=== PATIENT | male | born 1940 | race Caucasian/White ===

== ENCOUNTER 2022-01-14 14:55 | Emergency (ER) | payer MEDICARE, OTHER ==
[2022-01-14 15:13] VITALS: O2SAT 97
[2022-01-14] MEDS ORDERED: Adacel Vial IM ONE ×2 (15:51→16:10)
[2022-01-14] MEDS ORDERED: PERCOCET TABLET 5/325MG PO ONE (15:52)
--- NOTE | 2022-01-14 15:57 | ERPHSYRPT ---
- History of Present Illness Time Seen by Provider: 01/14/22 15:37 Source: patient Exam Limitations: no limitations Patient Subjective Stated Complaint: pt reports he was changing his mower blades wearing leather gloves when the blade struck his left fifth finger causing a laceration. pt denies any other injury. Triage Nursing Assessment: pt is aox3, pupils perrl, afebrile, resps easy and non labored, radial pulses strong and equal, cap refill < 3 seconds, pt sensation and ROM intact, pt skin pink warm dry. pt with approx 1cm laceration to the lateral left fifth finger. skin is well approximated. Physician History: 81 years old right-handed dominant male presented to the ER with chief complaint of laceration left fifth digit distal phalanx while he was changing his lawnmower blades and his wrench slipped and hit on the finger with his gloves on. There was bleeding initially but improved with applying pressure. Has multiple superficial cuts on the medial aspect of nail and finger pulp. Moderate intensity sharp pain with minimal movement/palpation. No injury anywhere else. Timing/Duration: today, sudden Quality: painful Severity: mild, moderate Location: hands Hx Tetanus, Diphtheria Vaccination/Date Given: No Hx Influenza Vaccination/Date Given: No Hx Pneumococcal Vaccination/Date Given: No Immunizations Up to Date: Yes Travel Risk - International Travel Have you traveled outside of the country in past 3 weeks: No - Coronavirus Screening Are you exhibiting any of the following symptoms?: No - Vaccine Status Have you recieved a Covid-19 vaccination: No - Review of Systems Constitutional: No Symptoms Ears, Nose, & Throat: No Symptoms Respiratory: No Symptoms Cardiac: No Symptoms Abdominal/Gastrointestinal: No Symptoms Musculoskeletal: Injury, Joint Redness, Joint Pain Skin: Skin Lesions Neurological: No Symptoms Endocrine: No Symptoms Hematologic/Lymphatic: No Symptoms - Past Medical History Neurological History: No Pertinent History Cardiac History: No Pertinent History Respiratory History: No Pertinent History Endocrine Medical History: No Pertinent History Musculoskeletal History: Arthritis - Past Surgical History Past Surgical History: Yes Gastrointestinal: Hernia Repair Musculoskeletal: Joint Replacement - Social History Smoking Status: Never smoker Drug Use: none Patient Lives Alone: No - Nursing Vital Signs Nursing Vital Signs: Initial Vital Signs Temperature 97.7 F 01/14/22 15:01 Pulse Rate 70 01/14/22 15:01 Respiratory Rate 18 01/14/22 15:01 Blood Pressure 119/55 01/14/22 15:01 O2 Sat by Pulse Oximetry 97 01/14/22 15:01 Pain Scale Pain Intensity 4 - Physical Exam General Appearance: no apparent distress, alert Ears, Nose, Throat Exam: normal ENT inspection Neck Exam: normal inspection, full range of motion Respiratory Exam: normal breath sounds, lungs clear Cardiovascular Exam: regular rate/rhythm, normal heart sounds Extremity Exam: inflammation, limited range of motion (DIP left 5th digit), swelling (multiple superficial lacerations 1cm each, minimal oozing), tenderness Neurologic Exam: alert, oriented x 3, cooperative, advertiser II-XII nml as tested Skin Exam: normal color SpO2 Interpretation: normal SpO2: 97 O2 Delivery: Room Air Procedures - Laceration/Wound Repair Left Distal Finger Time of Procedure: 15:58 Wound Location: Left Wound Length (cm): 3 Wound's Depth, Shape: superficial Wound Explored: clean Irrigated: Yes Hibiclens Prep: Yes Wound Repaired With: Steri-strips, Dermabond Splint Applied?: Yes Ordered Tests: Active Orders 24 hr Category Date Time Status Wound Care STAT Care 01/14/22 16:28 Completed FINGER(S) Stat Exams 01/14/22 Completed Medication Summary Discontinued Medications Generic Name Dose Route Start Last Admin Trade Name Ayala PRN Reason Stop Dose Admin Diphtheria/Tetanus/Acell Pertussis 0.5 ml 01/14/22 15:51 01/14/22 16:10 Tdap --Diph,Pertuss(Acell),Tet Vac/Pf 0.5 Ml Vial IM 01/14/22 15:52 0.5 ml .ONCE ONE Administration Diphtheria/Tetanus/Acell Pertussis Confirm 01/14/22 16:10 Tdap --Diph,Pertuss(Acell),Tet Vac/Pf 0.5 Ml Vial Administered 01/14/22 16:11 Dose 0.5 ml IM .STK-MED ONE Oxycodone/Acetaminophen 1 tab 01/14/22 15:52 01/14/22 16:04 Oxycodone Hcl/Apap 5 Mg/325 Mg Tablet PO 01/14/22 15:53 1 tab STAT ONE Administration Oxycodone/Acetaminophen Confirm 01/14/22 16:03 Oxycodone Hcl/Apap 5 Mg/325 Mg Tablet Administered 01/14/22 16:04 Dose 1 tab .ROUTE .STK-MED ONE - Progress Progress: improved, pain not gone completely, re-examined Progress Note: 01/14/22 16:28 Given symptomatic treatment for pain. No obvious fracture on x-rays reviewed by me, official report is pending. Steri-Strips/glue application is done with repair of lacerations which are superficial. Outpatient follow-up and Tylenol as needed. Counseled pt/family regarding: diagnosis, need for follow-up, rad results - Departure Departure Disposition: Home Clinical Impression: Finger laceration Condition: Stable Critical Care Time: No Referrals: JON RODRIGUEZ [Primary Care Provider] - Follow up/PCP as directed (2 days for re evaluation) Instructions: Laceration Repair With Glue (DC) Additional Instructions: Finger laceration take Tylenol as needed for pain. Intermittent ice application. Follow-up with primary care for reevaluation. Do not soak in water for next 48 hours. Return to ER for increasing pain swelling or if have any discharge/fever chills etc.
[2022-01-14] MEDS ORDERED: PERCOCET TABLET 5/325MG ONE (16:03)
[2022-01-14 16:36] VITALS: BP 112/74; PULSE 64
--- NOTE | 2022-01-14 17:49 | XRAY ---
Indication: Laceration. Comparison: None 3 view left 5th finger demonstrates tiny tuft soft tissue swelling/laceration and osteopenia. No other bony, articular, or soft tissue abnormalities.
== END 2022-01-14 16:43 | disposition home or self-care (01) ==
LOC: ED 14:55
DX: S61.217A Laceration without foreign body of left little finger without damage to nail, initial encounter (principal); W20.8XXA Other cause of strike by thrown, projected or falling object, initial encounter; Y93.H9 Activity, other involving exterior property and land maintenance, building and construction; Y92.007 Garden or yard of unspecified non-institutional (private) residence as the place of occurrence of the external cause
CPT/HCPCS: 12002; 73140; 90471; 90715; 99284; A9270-GY

== ENCOUNTER 2025-08-09 13:28 | Emergency (ER) | payer MEDICARE ==
[2025-08-09 13:54] VITALS: TEMP 98.1
--- NOTE | 2025-08-09 13:54 | ERPHSYRPT ---
- History of Present Illness Time Seen by Provider: 08/09/25 13:32 Source: patient Exam Limitations: no limitations Physician History: 84-year-old male presents to the emergency room patient reports he fell on Sunday was seen in the urgent care and he reports he was diagnosed with rib fractures reports he has been doing with the pain since that no minimal improvement he reports has been having a lot of muscle spasms when he takes deep inspiration patient is now in ED for further eval patient denies any new trauma IMPRESSION: 1. Age-indeterminate fractures at left 7th, 8th, 9th, 10th, and 11th ribs. Clinical correlation with point tenderness is suggested 2. A few basal pulmonary atelectatic bands. 3. Diffuse decreased bone density. 4. Correlation with clinical findings and further imaging if necessary. Timing/Duration: yesterday Severity: mild Associated Symptoms: other (Muscle spasms and ribs) Allergies/Adverse Reactions: No Known Drug Allergies Allergy (Unverified 08/09/25 13:56) Home Medications: Amlodipine Besylate 2.5 mg PO DAILY 08/09/25 [History] Apixaban [Eliquis] 5 mg PO BID 08/09/25 [History] Atorvastatin Calcium 20 mg PO DAILY 08/09/25 [History] Famotidine 20 mg PO DAILY 08/09/25 [History] Finasteride 5 mg [Proscar 5 MG] 5 mg PO DAILY 08/09/25 [History] Fluticasone/Umeclidin/Vilanter [Trelegy Ellipta 100-62.5-25] See Rx Instructions .ROUTE .COMPLEX 08/09/25 [History] Metoprolol Tartrate 25 mg PO BID 08/09/25 [History] Omeprazole 40 mg PO DAILY 08/09/25 [History] Rivastigmine [Exelon] 9.5 mg TD DAILY 08/09/25 [History] Tamsulosin HCl 0.4 mg PO DAILY 08/09/25 [History] Hx Tetanus, Diphtheria Vaccination/Date Given: No Hx Influenza Vaccination/Date Given: No Hx Pneumococcal Vaccination/Date Given: No - Review of Systems Constitutional: No Fever, No Chills Eyes: No Symptoms Ears, Nose, & Throat: No Symptoms Respiratory: No Cough, No Dyspnea Cardiac: Other (Rib pain spasms), No Chest Pain, No Edema, No Syncope Abdominal/Gastrointestinal: No Abdominal Pain, No Nausea, No Vomiting, No Diarrhea Genitourinary Symptoms: No Dysuria Musculoskeletal: No Back Pain, No Neck Pain Skin: No Rash Neurological: No Dizziness, No Focal Weakness, No Sensory Changes Psychological: No Symptoms Endocrine: No Symptoms All Other Systems: Reviewed and Negative - Past Medical History Neurological History: Dementia Cardiac History: Arrhythmia Other Medical History: GERD, MILD COGNITIVE IMPAIRMENT, BENIGN PROSTATIC HYPERPLASIA, ANTWON, PERSISTENT SINUS BRADYCARDIA, AMNESIA, HEART VALVE DISORDER, VENTRICULAR BIGEMINY, PACEMAKER, A-FIB, PVD, OBSTRUCTIVE PULMONARY DISEASE. 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 SX: HERNIA REPAIR, L TKR - Past Surgical History Past Surgical History: Yes Gastrointestinal: Hernia Repair Musculoskeletal: Joint Replacement - Social History Smoking Status: Never smoker Drug Use: none Patient Lives Alone: No - Nursing Vital Signs Nursing Vital Signs: Initial Vital Signs Temperature 98.1 F 08/09/25 13:30 Pulse Rate 65 08/09/25 13:30 Respiratory Rate 16 08/09/25 13:30 Blood Pressure 122/96 08/09/25 13:30 O2 Sat by Pulse Oximetry 98 08/09/25 13:30 Pain Scale Pain Intensity 8 - Physical Exam General Appearance: no apparent distress, alert Eye Exam: PERRL/EOMI, eyes nml inspection Ears, Nose, Throat Exam: normal ENT inspection, TMs normal, pharynx normal, moist mucous membranes Neck Exam: normal inspection, non-tender, supple, full range of motion Respiratory Exam: normal breath sounds, lungs clear, No respiratory distress Cardiovascular Exam: regular rate/rhythm, normal heart sounds, normal peripheral pulses, other (Chest wall tender) Gastrointestinal/Abdomen Exam: soft, normal bowel sounds, No tenderness, No mass Back Exam: normal inspection, normal range of motion, No CVA tenderness, No vertebral tenderness Extremity Exam: normal inspection, normal range of motion, pelvis stable Neurologic Exam: alert, oriented x 3, cooperative, normal mood/affect, nml cerebellar function, nml station & gait, sensation nml, No motor deficits Skin Exam: normal color, warm, dry, No rash Lymphatic Exam: No adenopathy Ordered Tests: Active Orders 24 hr Category Date Time Status Incentive Spirometry STAT RT 08/09/25 13:55 Active Medication Summary Discontinued Medications Generic Name Dose Route Start Last Admin Trade Name Freq PRN Reason Stop Dose Admin Cyclobenzaprine HCl 10 mg 08/09/25 13:51 08/09/25 14:03 Cyclobenzaprine Hcl 10 Mg Tablet PO 08/09/25 13:52 10 mg STAT ONE Administration Cyclobenzaprine HCl Confirm 08/09/25 13:58 Cyclobenzaprine Hcl 10 Mg Tablet Administered 08/09/25 13:59 Dose 10 mg .ROUTE .STK-MED ONE Ketorolac Tromethamine 15 mg 08/09/25 13:51 08/09/25 14:04 Ketorolac Tromethamine 30 Mg/Ml Inj IM 08/09/25 13:52 15 mg STAT ONE Administration Ketorolac Tromethamine Confirm 08/09/25 13:58 Ketorolac Tromethamine 30 Mg/Ml Inj Administered 08/09/25 13:59 Dose 30 mg .ROUTE .STK-MED ONE - Progress Progress Note: 08/09/25 13:54 Patient will be given Flexeril and a shot of Toradol 08/09/25 14:45 Patient feels improved after Flexeril patient be discharged home he has an incentive spirometer recommended that he use the recommended lidocaine as needed will be discharged at this time - Departure Departure Disposition: Home Clinical Impression: Muscle spasm Ribs, multiple fractures Qualifiers: Encounter type: initial encounter Fracture type: closed Laterality: left Qualified Code(s): S22.42XA - Multiple fractures of ribs, left side, initial encounter for closed fracture Condition: Stable Critical Care Time: No Referrals: CHASTITY FALLON NP [Primary Care Provider, [facility]] - Follow up/PCP as directed Instructions: Rib Fracture (DC), Bruised Rib, How to use an incentive spirometer Prescriptions: Cyclobenzaprine HCl 10 mg [Cyclobenzaprine 10 MG] 10 mg PO HS #7 tablet
[2025-08-09] MEDS ORDERED: Cyclobenzaprine 10 MG ONE (13:58)
[2025-08-09] MEDS ORDERED: TORAdol 30 mg Injection ONE (13:58)
[2025-08-09] MEDS: Cyclobenzaprine 10 MG PO ONE (14:03)
[2025-08-09] MEDS: TORAdol 30 mg Injection IM ONE (14:04)
[2025-08-09 14:30] VITALS: O2SAT 96
[2025-08-09 16:09] VITALS: BP 192/92; PULSE 67; RESP 18
== END 2025-08-09 15:37 | disposition home or self-care (01) ==
LOC: ED 13:28
DX: S22.42XA Multiple fractures of ribs, left side, initial encounter for closed fracture (principal); W19.XXXA Unspecified fall, initial encounter; Z79.01 Long term (current) use of anticoagulants; Z79.899 Other long term (current) drug therapy

== ENCOUNTER 2025-08-13 13:18 | Emergency (ER) | payer MEDICARE ==
--- NOTE | 2025-08-13 13:26 | ERPHSYRPT ---
- History of Present Illness Time Seen by Provider: 08/13/25 13:26 Source: patient, family Exam Limitations: no limitations Physician History: This is an 84-year-old white male patient who recently fell and fractured left side ribs 7 through 11. He has been home for several days following that fall. The the patient's primary care provider is nurse practitioner Fei. In the last few days patient's /family have stated that his dementia is worsening, he is having worsening left chest wall pain and he has had increased bilateral lower extremity swelling. Patient is currently not voicing any significant symptoms. Patient has a history of prostate issues, gastroesophageal reflux disease, hypertension, dementia, hyperlipidemia, atrial fibrillation, COPD and has a pacemaker in place. Patient is on Eliquis. Timing/Duration: day(s) (3) Associated Symptoms: other (Left-sided rib pain), No nausea, No vomiting, No abdominal pain, No shortness of breath, No chest pain Allergies/Adverse Reactions: No Known Drug Allergies Allergy (Verified 08/13/25 13:28) Home Medications: Amlodipine Besylate 2.5 mg PO DAILY 08/09/25 [History] Apixaban [Eliquis] 5 mg PO BID 08/09/25 [History] Atorvastatin Calcium 20 mg PO DAILY 08/09/25 [History] Famotidine 20 mg PO DAILY 08/09/25 [History] Finasteride 5 mg [Proscar 5 MG] 5 mg PO DAILY 08/09/25 [History] Fluticasone/Umeclidin/Vilanter [Trelegy Ellipta 100-62.5-25] See Rx Instructions .ROUTE .COMPLEX 08/09/25 [History] Metoprolol Tartrate 25 mg PO BID 08/09/25 [History] Omeprazole 40 mg PO DAILY 08/09/25 [History] Rivastigmine [Exelon] 9.5 mg TD DAILY 08/09/25 [History] Tamsulosin HCl 0.4 mg PO DAILY 08/09/25 [History] Hx Tetanus, Diphtheria Vaccination/Date Given: No Hx Influenza Vaccination/Date Given: No Hx Pneumococcal Vaccination/Date Given: No Travel Risk - International Travel Have you traveled outside of the country in past 3 weeks: No - Emerging Infectious Disease Are you exhibiting symptoms associated with any current EIDs: No - Review of Systems Constitutional: No Symptoms Eyes: No Symptoms Ears, Nose, & Throat: No Symptoms Respiratory: No Symptoms, Other (Left-sided rib pain status post rib fractures) Cardiac: No Symptoms Abdominal/Gastrointestinal: No Symptoms Genitourinary Symptoms: No Symptoms Musculoskeletal: No Symptoms Skin: No Symptoms Neurological: No Symptoms Psychological: No Symptoms Endocrine: No Symptoms Hematologic/Lymphatic: No Symptoms Immunological/Allergic: No Symptoms All Other Systems: Reviewed and Negative - Past Medical History Neurological History: Dementia Cardiac History: Arrhythmia Other Medical History: GERD, MILD COGNITIVE IMPAIRMENT, BENIGN PROSTATIC HYPERPLASIA, ANTWON, PERSISTENT SINUS BRADYCARDIA, AMNESIA, HEART VALVE DISORDER, VENTRICULAR BIGEMINY, PACEMAKER, A-FIB, PVD, OBSTRUCTIVE PULMONARY DISEASE. 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 SX: HERNIA REPAIR, L TKR - Past Surgical History Past Surgical History: Yes Gastrointestinal: Hernia Repair Musculoskeletal: Joint Replacement - Social History Smoking Status: Never smoker Drug Use: none Patient Lives Alone: No - Social Determinants of Health Will the patient participate in the screening: Yes Do you worry about a steady place to live?: No In the past 12 months,have you had to go without utilities?: No Transportation Issues: No Has anyone in your support network made you feel unsafe?: No Have you or anyone in your house had to go w/o enough food: No - Nursing Vital Signs Nursing Vital Signs: Initial Vital Signs Pulse Rate 62 08/13/25 13:30 Respiratory Rate 14 08/13/25 13:30 Blood Pressure 166/88 08/13/25 13:30 O2 Sat by Pulse Oximetry 96 08/13/25 13:30 Pain Scale Pain Intensity 2 - Physical Exam General Appearance: no apparent distress, alert Eye Exam: PERRL/EOMI, eyes nml inspection Ears, Nose, Throat Exam: normal ENT inspection, moist mucous membranes Neck Exam: normal inspection, non-tender, supple, full range of motion Respiratory Exam: normal breath sounds, chest tenderness (Left side rib tenderness to palpation), lungs clear, airway intact, No respiratory distress Cardiovascular Exam: regular rate/rhythm, normal heart sounds, normal peripheral pulses Gastrointestinal/Abdomen Exam: soft, normal bowel sounds, No tenderness Rectal Exam: not done Back Exam: normal inspection, normal range of motion, No CVA tenderness, No vertebral tenderness Extremity Exam: normal range of motion, pelvis stable, pedal edema (Bilateral feet and ankle swelling), swelling Neurologic Exam: alert, oriented x 3, cooperative, valve inserter II-XII nml as tested, nml station & gait, sensation nml Skin Exam: normal color, warm Lymphatic Exam: No adenopathy SpO2 Interpretation: normal O2 Delivery: Room Air - Course Nursing assessment & vital signs reviewed: Yes Ordered Tests: Active Orders 24 hr Category Date Time Status EKG-ER Only STAT Care 08/13/25 14:10 Completed IV Insertion STAT Care 08/13/25 14:10 Completed CHEST WITHOUT CONTRAST [CT] Stat Exams 08/13/25 14:13 Completed HEAD WITHOUT CONTRAST [CT] Stat Exams 08/13/25 14:12 Completed VENOUS BILATERAL EXTREMITY [US] Stat Exams 08/13/25 14:14 Completed CBC W DIFF Stat Lab 08/13/25 15:35 Completed CMP Stat Lab 08/13/25 15:35 Completed NT PRO BNPII Stat Lab 08/13/25 15:35 Completed TROPONIN Q4H Lab 08/13/25 15:35 Completed TROPONIN Q4H Lab 08/13/25 18:15 Ordered TROPONIN Q4H Lab 08/13/25 22:15 Ordered UA W/RFX UR CULTURE Stat Lab 08/13/25 14:38 Completed Lab/Rad Data: Laboratory Result Diagrams 08/13/25 15:35 08/13/25 15:35 Laboratory Results 08/13/25 08/13/25 08/13/25 Range/Units 15:35 15:35 15:35 WBC 5.5 (4.23-9.07) x10^3/uL RBC 4.60 L (4.63-6.08) x10^6/uL Hgb 13.5 L (13.7-17.5) g/dL Hct 41.8 (40.1-51.0) % MCV 90.9 (79.0-92.2) fL MCH 29.3 (25.7-32.2) pg MCHC 32.3 (32.3-36.5) g/dL RDW 13.6 (11.6-14.4) % Plt Count 172 (163-337) x10^3/uL MPV 10.4 (9.4-12.4) fL Gran % 77.0 H (34.0-67.9) % Immature Gran % (Auto) 0.4 (0.001-0.429) % Nucleat RBC Rel Count 0.0 (0.00-0.2) % Eos # (Auto) 0.02 L (0.04-0.54) x10^3/uL Immature Gran # (Auto) 0.02 (0.001-0.031) x10^3u/L Absolute Lymphs (auto) 0.76 L (1.32-3.57) x10^3/uL Absolute Monos (auto) 0.44 (0.30-0.82) x10^3/uL Absolute Nucleated RBC 0.00 (0.00-0.012) x10^3u/L Lymphocytes % 13.8 L (21.8-53.1) % Monocytes % 8.0 (5.3-12.2) % Eosinophils % 0.4 L (0.8-7.0) % Basophils % 0.4 (0.2-1.2) % Absolute Granulocytes 4.23 (1.78-5.38) x10^3/uL Basophils # 0.02 (0.01-0.08) x10^3/uL Sodium 138 (135-145) mmol/L Potassium 4.0 (3.5-5.1) mmol/L Chloride 103 (98-107) mmol/L Carbon Dioxide 27 (22-30) mmol/L Anion Gap 12.5 (5-15) MEQ/L BUN 20 (9-20) mg/dL Creatinine 0.97 (0.66-1.25) mg/dL Estimated GFR 77.5 ML/MIN Glucose 100 (74-106) mg/dL Calcium 8.8 (8.4-10.2) mg/dL Total Bilirubin 1.50 H (0.2-1.3) mg/dL AST 50 (17-59) U/L ALT 47 (0-50) U/L Alkaline Phosphatase 60 (38-126) U/L Troponin I < 0.012 (0.000-0.033) ng/mL NT-Pro-B Natriuret Pep 331 (<300) pg/mL Serum Total Protein 6.4 (6.3-8.2) g/dL Albumin 3.9 (3.5-5.0) g/dL Urine Color (Yellow) Urine Appearance (Clear) Urine pH (4.6-8.0) Ur Specific Driscoll (1.005-1.030) Urine Protein (Negative) Urine Glucose (UA) (Negative) mg/dL Urine Ketones (Negative) Urine Blood (Negative) Urine Nitrite (Negative) Urine Bilirubin (Negative) Urine Urobilinogen (0.2) mg/dL Ur Leukocyte Esterase (Negative) U Hyaline Cast (Auto) (0-2) /LPF Urine Microscopic RBC (0-5) /HPF Urine Microscopic WBC (0-5) /HPF Ur Epithelial Cells (None Seen) /HPF Urine Bacteria (None Seen) /HPF Urine Culture Reflexed (NO) 08/13/25 Range/Units 14:38 WBC (4.23-9.07) x10^3/uL RBC (4.63-6.08) x10^6/uL Hgb (13.7-17.5) g/dL Hct (40.1-51.0) % MCV (79.0-92.2) fL MCH (25.7-32.2) pg MCHC (32.3-36.5) g/dL RDW (11.6-14.4) % Plt Count (163-337) x10^3/uL MPV (9.4-12.4) fL Gran % (34.0-67.9) % Immature Gran % (Auto) (0.001-0.429) % Nucleat RBC Rel Count (0.00-0.2) % Eos # (Auto) (0.04-0.54) x10^3/uL Immature Gran # (Auto) (0.001-0.031) x10^3u/L Absolute Lymphs (auto) (1.32-3.57) x10^3/uL Absolute Monos (auto) (0.30-0.82) x10^3/uL Absolute Nucleated RBC (0.00-0.012) x10^3u/L Lymphocytes % (21.8-53.1) % Monocytes % (5.3-12.2) % Eosinophils % (0.8-7.0) % Basophils % (0.2-1.2) % Absolute Granulocytes (1.78-5.38) x10^3/uL Basophils # (0.01-0.08) x10^3/uL Sodium (135-145) mmol/L Potassium (3.5-5.1) mmol/L Chloride (98-107) mmol/L Carbon Dioxide (22-30) mmol/L Anion Gap (5-15) MEQ/L BUN (9-20) mg/dL Creatinine (0.66-1.25) mg/dL Estimated GFR ML/MIN Glucose (74-106) mg/dL Calcium (8.4-10.2) mg/dL Total Bilirubin (0.2-1.3) mg/dL AST (17-59) U/L ALT (0-50) U/L Alkaline Phosphatase (38-126) U/L Troponin I (0.000-0.033) ng/mL NT-Pro-B Natriuret Pep (<300) pg/mL Serum Total Protein (6.3-8.2) g/dL Albumin (3.5-5.0) g/dL Urine Color Yellow (Yellow) Urine Appearance Clear (Clear) Urine pH 6.0 (4.6-8.0) Ur Specific Driscoll 1.010 (1.005-1.030) Urine Protein Negative (Negative) Urine Glucose (UA) Negative (Negative) mg/dL Urine Ketones Negative (Negative) Urine Blood Negative (Negative) Urine Nitrite Negative (Negative) Urine Bilirubin Negative (Negative) Urine Urobilinogen 1.0 A (0.2) mg/dL Ur Leukocyte Esterase Negative (Negative) U Hyaline Cast (Auto) NONE SEEN (0-2) /LPF Urine Microscopic RBC 0-2 (0-5) /HPF Urine Microscopic WBC 0-2 (0-5) /HPF Ur Epithelial Cells None Seen (None Seen) /HPF Urine Bacteria None Seen (None Seen) /HPF Urine Culture Reflexed NO (NO) - Progress Progress: improved, re-examined Progress Note: 08/13/25 15:23 My medical decision making and the assignment of moderate complexity of this patient's medical issue today is based on review of the patient's past medical history, reviewed the patient's medication list, reviewed patient drug allergy list, history present illness and physical findings on examination. The workup in this patient includes placement of intravenous line, CBC, CMP, troponin level, BNP, twelve-lead EKG, CT scan of the chest without contrast, CT scan of the head without contrast, bilateral lower extremity venous Dopplers. Differential diagnosis includes but is not limited to DVT, CHF, lung contusion, myocardial infarction, arrhythmia, electrolyte abnormalities, pulmonary infiltrate 08/13/25 17:14 I interpreted the patient's laboratory data results. Based on laboratory data results, there are no acute, emergent medical issues. The following radiographic studies were interpreted by the radiologist and I reviewed the impression: Venous Doppler studies of bilateral lower extremities. Both lower extremities are negative for DVT. Head CT without contrast shows incidental paranasal sinus disease. 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 CT scan of the chest without contrast shows chronic findings. There is bibasilar atelectasis/scarring. There is old left 7 to 10th rib fractures. There are no suspicious pulmonary mass/nodule, infiltrate or effusions. Counseled pt/family regarding: lab results, diagnosis, need for follow-up, rad results Medical Desision Making - Independent Historian Additional History obtained from: Spouse, Family - Diagnostic Testing Diagnostic test were ordered, analyzed, and reviewed by me: Yes Radiological Interpretation: Reviewed by me, Teleradiologist Report - Risk of complications Low Risk: Low risk of morbidity from additional dx testing or treatment - Departure Departure Disposition: Home Clinical Impression: Dementia, Swelling of both lower extremities Condition: Stable Critical Care Time: No Referrals: CHASTITY FALLON NP [Primary Care Provider, [facility]] - Follow up/PCP as directed Additional Instructions: Only use Tylenol for pain. May add ice pack to tender area of ribs if needed. Provide the patient with his prescription medication as prescribed. Call the patient's primary care provider tomorrow, 08/14/2025, to make arranges for follow-up appointment for further evaluation and management.
[2025-08-13 13:32] VITALS: TEMP 98.5
[2025-08-13 14:48] LABS: Glucose, Urine Negative (Negative); Protein,Urine Dip Negative (Negative); RBC 0-2 /HPF (0-5); WBC 0-2 /HPF (0-5)
--- NOTE | 2025-08-13 15:21 | XRAY ---
Indication: Bilateral pain and swelling. Two-dimensional sonogram and color Doppler imaging major venous vessels left and right leg performed. Comparison: None No thrombus seen in the examined deep venous vessels left and right leg including greater saphenous vein. Veins demonstrate normal compressibility. Venous waveforms are normal with and without augmentation. Impression: Left and right leg negative for DVT.
[2025-08-13 15:46] LABS: BASOPHIL % 0.4 % (0.2-1.2); Basophil (Absolute #) 0.02 x10^3/uL (0.01-0.08); Eosinophil (Absolute #) 0.02 x10^3/uL (0.04-0.54); Hematocrit 41.8 % (40.1-51.0); Hemoglobin 13.5 g/dL (13.7-17.5); IMMATURE GRAN # 0.02 x10^3u/L (0.001-0.031); IMMATURE GRAN % 0.4 % (0.001-0.429); Lymphocyte (Absolute #) 0.76 x10^3/uL (1.32-3.57); Mean Corpuscular Hemoglobin 29.3 pg (25.7-32.2); Mean Corpuscular Hgb Concent. 32.3 g/dL (32.3-36.5); Monocyte (Absolute #) 0.44 x10^3/uL (0.30-0.82); NUCLEATED RBC # 0.00 x10^3u/L (0.00-0.012); NUCLEATED RBC % 0.0 % (0.00-0.2); Platelet Count 172 x10^3/uL (163-337); Red Blood Count 4.60 x10^6/uL (4.63-6.08); White Blood Count 5.5 x10^3/uL (4.23-9.07)
[2025-08-13 16:10] LABS: Calcium 8.8 mg/dL (8.4-10.2); Carbon Dioxide 27.0 mmol/L (22-30); Creatinine 1 0.97 mg/dL (0.66-1.25); EST GLOMERULAR FILTRATION RATE 77.5 ML/MIN; Glucose 100.0 mg/dL (74-106); NT PRO BNPII 331.0 pg/mL (<300); Potassium 4.0 mmol/L (3.5-5.1); SGOT/AST 50.0 U/L (17-59); SGPT/ALT 47.0 U/L (0-50); Total Protein 6.4 g/dL (6.3-8.2)
--- NOTE | 2025-08-13 16:46 | XRAY ---
Indication: Altered mental status. History dementia. Multiple contiguous axial images obtained through the head without contrast. Comparison: None Age-appropriate global atrophy, mild periventricular degenerative microischemia bilaterally, and remote lacunar infarct right external capsule. No acute intracranial hemorrhage, abnormal extra-axial fluid collection, or mass effect. 4th ventricle is midline without hydrocephalus. Bony calvarium intact. Mild mucosal thickening right ethmoid and lesser degree sphenoid sinuses. Mastoid air cells are clear. Impression: Nonacute senile brain with remote lacunar infarct right external capsule. Incidental paranasal sinus disease.
--- NOTE | 2025-08-13 17:05 | XRAY ---
Indication: Rib pain. Multiple contiguous axial images obtained through the chest without contrast. Comparison: None Lungs demonstrates mild bilateral dependent atelectasis, mild bibasilar subsegmental atelectasis/scarring, and a few tiny bilateral calcified granulomas. Also minimal scattered bilateral pleural thickening with minimal right upper anterior and posterior left lower calcified pleural plaquing. No suspicious pulmonary mass/nodule, infiltrate, or effusion. Heart not enlarged with left pacemaker. Aorta is mildly arteriosclerotic without aneurysm. Small bilateral hilar calcified nodes. No pathologic mediastinal lymphadenopathy. Bony thorax intact with osteopenia, minimal/mild degenerative changes throughout spine, small superior T9 Schmorl node, and old anterior left 7-10 rib fractures. Incidental bilateral gynecomastia. Limited upper abdomen demonstrates 1.5 cm left lobe hepatic cyst. Visualized colon demonstrates moderate diffuse colonic fecal debris. Impression: Chronic findings including bibasilar atelectasis/scarring, bilateral calcified/noncalcified pleural plaquing, arteriosclerotic disease, chronic bony findings, bilateral gynecomastia, hepatic cyst, and old granulomatous disease. Incidental colonic fecal stasis. No acute findings on this noncontrast exam.
[2025-08-13 17:21] VITALS: BP 178/88; PULSE 64; RESP 15; O2SAT 97
== END 2025-08-13 17:42 | disposition home or self-care (01) ==
LOC: ED 13:18
DX: F03.90 Unspecified dementia, unspecified severity, without behavioral disturbance, psychotic disturbance, mood disturbance, and anxiety (principal); M79.89 Other specified soft tissue disorders; R07.89 Other chest pain; I10 Essential (primary) hypertension; Z79.01 Long term (current) use of anticoagulants; Z79.899 Other long term (current) drug therapy